=== PATIENT | female | born 1990 | race Caucasian/White ===

== ENCOUNTER → 2019-04-17 | Outpatient (REF) | payer OTHER ==
[2019-04-17 18:09] LABS: HEMATOCRIT 40.1 % (36.0-47.0); HEMOGLOBIN 13.8 g/dl (12.0-15.5); MEAN CORPUSCULAR HEMOGLOBIN 29.4 pg (27.0-33.0); MEAN CORPUSCULAR HGB CONC 34.4 g/dl (32.0-36.5); MEAN CORPUSCULAR VOLUME 85.3 fl (80.0-96.0); PLATELET COUNT, AUTOMATED 219 10^3/uL (150-450); WHITE BLOOD COUNT 5.9 10^3/uL (4.0-10.0)
[2019-04-18 12:45] LABS: HCG, SERUM QUANTITATIVE 26477 MIU/ML; HIV 1&2 SCREEN CENTAUR NEGATIVE (NEGATIVE); RUBELLA IgG QUALITATIVE IMMUNE (IMMUNE)
[2019-04-19 11:10] LABS: HEPATITIS C VIRUS ABY INDEX 0.7 INDEX (<0.8)
== END ==
LOC: M LAB REF 16:59
PROVIDERS: ATTEND Nurse Practitioner Women's Health
DX: Z34.01 Encounter for supervision of normal first pregnancy, first trimester (principal); Z3A.00 Weeks of gestation of pregnancy not specified

== ENCOUNTER 2019-05-04 14:47 | Emergency (ER) | payer OTHER ==
[~2019-05-04] VITALS: Ht 172.7 cm; Wt 92.7 kg
[2019-05-04] MEDS ORDERED: PROMETHAZINE INJ 25 MG/ML VIAL (J2550) IV ONE (15:30)
[2019-05-04] MEDS ORDERED: NS 1,000 ML IV ONE (15:30)
[2019-05-04 16:09] LABS: BASO % 0.4 % (0.0-1.0); EOS % 0.6 % (0.0-3.0); HEMATOCRIT 38.5 % (36.0-47.0); HEMOGLOBIN 13.6 g/dl (12.0-15.5); LYMPH # 1.7 10^3/uL (1.5-6.5); LYMPH % 25.7 % (24.0-44.0); MEAN CORPUSCULAR HEMOGLOBIN 29.6 pg (27.0-33.0); MEAN CORPUSCULAR HGB CONC 35.3 g/dl (32.0-36.5); MEAN CORPUSCULAR VOLUME 83.9 fl (80.0-96.0); MONO # 0.5 10^3/uL (0.0-0.8); MONO % 7.2 % (0.0-5.0); NEUTROPHILS # 4.5 10^3/uL (1.8-7.7); NEUTROPHILS % 65.8 % (36.0-66.0); PLATELET COUNT, AUTOMATED 197 10^3/uL (150-450); RED BLOOD COUNT 4.59 10^6/uL (4.00-5.40); WHITE BLOOD COUNT 6.8 10^3/uL (4.0-10.0)
[2019-05-04 16:31] LABS: HCG, SERUM QUALITATIVE POSITIVE (NEGATIVE)
[2019-05-04 16:33] LABS: ALBUMIN 3.6 GM/DL (3.2-5.2); ALT/SGPT 37 U/L (12-78); BILIRUBIN,DIRECT 0.2 MG/DL (0.0-0.2); BILIRUBIN,TOTAL 0.6 MG/DL (0.2-1.0); BLOOD UREA NITROGEN 6 MG/DL (7-18); CARBON DIOXIDE LEVEL 26 MEQ/L (21-32); CHLORIDE LEVEL 105 MEQ/L (98-107); CREATININE FOR GFR 0.72 MG/DL (0.55-1.30); GLOMERULAR FILTRATION RATE > 60.0 (>60); GLUCOSE, FASTING 74 MG/DL (70-100); LIPASE 230 U/L (73-393); POTASSIUM SERUM 3.6 MEQ/L (3.5-5.1); SODIUM LEVEL 138 MEQ/L (136-145); TOTAL PROTEIN 7.7 GM/DL (6.4-8.2)
[2019-05-04 18:46] VITALS: BP 106/56
[2019-05-04] MEDS ORDERED: PROM12.56 PO (18:55)
== END 2019-05-04 19:15 | disposition home or self-care (01) ==
LOC: M ED 14:47
DX: O21.9 Vomiting of pregnancy, unspecified (principal); Z3A.08 8 weeks gestation of pregnancy

== ENCOUNTER 2019-06-02 12:52 | Emergency (ER) | payer OTHER ==
[~2019-06-02] VITALS: Ht 172.7 cm; Wt 84.1 kg
[~2019-06-02 12:52] MED LIST: PROM12.56 PO
[2019-06-02 13:40] LABS: BASO % 0.4 % (0.0-1.0); EOS # 0.1 10^3/uL (0.0-0.50); EOS % 0.9 % (0.0-3.0); HEMATOCRIT 40.5 % (36.0-47.0); LYMPH # 1.8 10^3/uL (1.5-6.5); LYMPH % 32.6 % (24.0-44.0); MEAN CORPUSCULAR HEMOGLOBIN 30.2 pg (27.0-33.0); MEAN CORPUSCULAR HGB CONC 34.6 g/dl (32.0-36.5); MEAN CORPUSCULAR VOLUME 87.5 fl (80.0-96.0); MONO # 0.3 10^3/uL (0.0-0.8); MONO % 5.8 % (0.0-5.0); NEUTROPHILS # 3.2 10^3/uL (1.8-7.7); NEUTROPHILS % 60.1 % (36.0-66.0); PLATELET COUNT, AUTOMATED 189 10^3/uL (150-450); RED BLOOD COUNT 4.63 10^6/uL (4.00-5.40); WHITE BLOOD COUNT 5.4 10^3/uL (4.0-10.0)
[2019-06-02 14:23] LABS: BLOOD UREA NITROGEN 5 MG/DL (7-18); CARBON DIOXIDE LEVEL 26 MEQ/L (21-32); CHLORIDE LEVEL 107 MEQ/L (98-107); CREATININE FOR GFR 0.64 MG/DL (0.55-1.30); GLOMERULAR FILTRATION RATE > 60.0 (>60); GLUCOSE, FASTING 89 MG/DL (70-100); HCG, SERUM QUANTITATIVE 38128 MIU/ML; POTASSIUM SERUM 3.7 MEQ/L (3.5-5.1); SODIUM LEVEL 140 MEQ/L (136-145)
[2019-06-02 16:37] VITALS: BP 121/65
--- NOTE | 2019-06-02 20:44 | REP ---
REASON: Vaginal bleeding. Multiple ultrasonographic images of the gravid uterus show a single living intrauterine gestation in variable positions. The fetus was too small for an anatomical screen. The estimated gestational age is 13 weeks 5 days. HC 8.6 cm 13 weeks 6 days AC 6.1 cm 12 weeks 6 days FL 1.0 cm 13 weeks 1 day The estimated weight is 69 grams which is at the 43rd percentile for a 12 week 6 days gestational age. Doppler interrogation of the heart shows a heart rate of 150 beats per minute. No subchorionic hemorrhage was noted. The developing placenta was seen anteriorly and not low lying. Evaluation of the maternal adnexal spaces showed no abnormalities. The cervix measures 4.1 cm in length and was closed. The anatomical screen was not possible due to the young age. IMPRESSION: Single living intrauterine gestation as described above with an estimated gestational age of 13 weeks 2 days via composite criteria with an estimated date of delivery of 12/06/2019 by today exam. The fetus was too small for an anatomical screen. Followup is recommended between 20 and 22 weeks gestation for that examination to be performed. Electronically Signed by Tommie Churchill DO 06/03/2019 10:03 A
== END 2019-06-02 16:38 | disposition home or self-care (01) ==
LOC: M ED 12:52
DX: O20.8 Other hemorrhage in early pregnancy (principal); O99.281 Endocrine, nutritional and metabolic diseases complicating pregnancy, first trimester; Z3A.13 13 weeks gestation of pregnancy; Z79.899 Other long term (current) drug therapy

== ENCOUNTER 2019-06-14 14:33 | Emergency (ER) | payer OTHER ==
[~2019-06-14] VITALS: Ht 172.7 cm; Wt 82.2 kg
[2019-06-14] MEDS ORDERED: ONDA8TAB7 (14:45)
[2019-06-14 15:32] LABS: BASO % 0.2 % (0.0-1.0); EOS % 0.7 % (0.0-3.0); HEMATOCRIT 35.1 % (36.0-47.0); HEMOGLOBIN 12.2 g/dl (12.0-15.5); LYMPH # 1.4 10^3/uL (1.5-6.5); LYMPH % 24.7 % (24.0-44.0); MEAN CORPUSCULAR HEMOGLOBIN 29.5 pg (27.0-33.0); MEAN CORPUSCULAR HGB CONC 34.8 g/dl (32.0-36.5); MONO # 0.4 10^3/uL (0.0-0.8); MONO % 6.9 % (0.0-5.0); NEUTROPHILS # 3.9 10^3/uL (1.8-7.7); PLATELET COUNT, AUTOMATED 196 10^3/uL (150-450); RED BLOOD COUNT 4.13 10^6/uL (4.00-5.40); WHITE BLOOD COUNT 5.8 10^3/uL (4.0-10.0)
[2019-06-14 16:21] LABS: BLOOD UREA NITROGEN 6 MG/DL (7-18); CALCIUM LEVEL 8.8 MG/DL (8.5-10.1); CARBON DIOXIDE LEVEL 23 MEQ/L (21-32); CHLORIDE LEVEL 109 MEQ/L (98-107); CREATININE FOR GFR 0.49 MG/DL (0.55-1.30); GLOMERULAR FILTRATION RATE > 60.0 (>60); GLUCOSE, FASTING 135 MG/DL (70-100); HCG, SERUM QUANTITATIVE 32517 MIU/ML; POTASSIUM SERUM 3.9 MEQ/L (3.5-5.1); SODIUM LEVEL 137 MEQ/L (136-145)
--- NOTE | 2019-06-14 16:31 | REP ---
Obstetric ultrasound for pelvic cramping: There is a single intrauterine gestation. position is variable. There is movement and cardiac activity. The heart rate is 135 beats per minute. The placenta is anterior without previa or abruptio. The placenta demonstrates grade zero maturity. The amniotic fluid volume subjectively is normal. The cervix is 4.2 cm in length. Gestational age by today's ultrasound is 15-week 0 days/OSMIN 12/06/2019. Gestational age by the first ultrasound is 15 weeks 0 days/OSMIN 12/06/2019. Gestational age by LMP is 14 weeks 4 days/OSMIN 12/09/2019. weight is 110 grams/0 pounds, 3 ounces. This is the 54th percentile for 14 weeks 4 days. During the examination. Normal appearing stomach, cord insertion and bladder are observed. Electronically Signed by Guerrero Page MD 06/14/2019 04:22 P
[2019-06-14 17:07] VITALS: BP 103/61
== END 2019-06-14 17:10 | disposition home or self-care (01) ==
LOC: M ED 14:33
DX: O26.852 Spotting complicating pregnancy, second trimester (principal); Z3A.14 14 weeks gestation of pregnancy; Z79.899 Other long term (current) drug therapy

== ENCOUNTER → 2019-07-04 | Outpatient (CLI) | payer OTHER ==
[~2019-07-04] MED LIST changes: +ONDA8TAB7
--- NOTE | 2019-07-04 15:23 | REP ---
OB ULTRASOUND: Real-time sonographic evaluation of gravid uterus performed utilizing transabdominal and endovaginal technique. There is a single living intrauterine gestation, estimated gestational age 17 weeks 3 days, EDC 12/09/2019. Today's measurements indicate appropriate growth. BPD 35 mm = 16 weeks 6 days, 30th percentile HC 144 mm = 17 weeks 4 days, 57th percentile AC 129 mm = 18 weeks 3 days, 73rd percentile Femur length 27 mm = 18 weeks 1 day, 68th percentile HC/AC ratio 1.11 within normal range. Estimated weight 228 grams, 79th percentile. Cervix closed and measures 4.3 cm in length. heart rate 141 beats per minute. SEEN/GROSSLY UNREMARKABLE Lateral ventricles Yes Posterior fossa Yes Upper lip No Four-chamber heart Yes LVOT Yes RVOT Yes Stomach Yes Cord insertion Yes Three vessel cord Yes Kidneys Yes Bladder Yes Spine Yes position: Transverse with head toward the maternal right side. Placenta is anterior and grade 0. There is no placenta previa or abruption. On transabdominal images, there is a somewhat mobile oval echogenic structure posteriorly measuring 2.8 x 1.2 x 2.0 cm, likely representing a blood clot. There is an area of unfused amnion. Amniotic fluid is within normal limits. Electronically Signed by Guerrero Sue MD 07/04/2019 05:02 P
== END ==
LOC: M RAD 11:25
PROVIDERS: ATTEND Advanced Practice Midwife
DX: O32.2XX0 Maternal care for transverse and oblique lie, not applicable or unspecified (principal); Z36.89 Encounter for other specified antenatal screening; Z3A.17 17 weeks gestation of pregnancy

== ENCOUNTER → 2019-07-24 | Outpatient (CLI) | payer OTHER ==
[2019-07-24 18:27] LABS: FREE T4 1.02 NG/DL (0.76-1.46); THYROID STIMULATING HORMONE 1.39 uIU/ML (0.358-3.740)
[2019-07-24 18:36] LABS: HEMATOCRIT 34.7 % (36.0-47.0); HEMOGLOBIN 11.4 g/dl (12.0-15.5); MEAN CORPUSCULAR HEMOGLOBIN 30.3 pg (27.0-33.0); MEAN CORPUSCULAR HGB CONC 32.9 g/dl (32.0-36.5); MEAN CORPUSCULAR VOLUME 92.3 fl (80.0-96.0); PLATELET COUNT, AUTOMATED 212 10^3/uL (150-450); RED BLOOD COUNT 3.76 10^6/uL (4.00-5.40); WHITE BLOOD COUNT 6.2 10^3/uL (4.0-10.0)
== END ==
LOC: M SMT 13:26
PROVIDERS: ATTEND Advanced Practice Midwife
DX: O21.0 Mild hyperemesis gravidarum (principal); Z3A.00 Weeks of gestation of pregnancy not specified

== ENCOUNTER → 2019-08-07 | Outpatient (CLI) | payer OTHER ==
--- NOTE | 2019-08-08 00:50 | REP ---
Clinical: Anatomical evaluation. Comparison: 07/04/2019 . Findings: Examination demonstrates a single live intrauterine in transverse (head to maternal right) presentation. motion is identified by technologist. Placenta is noted anterior and grade I without evidence for placenta previa or abruption. Amniotic fluid volume is normal. Cervix measures 3.2 cm in length and appears closed. No evidence for nuchal cord. Gestational age by LMP 22 weeks 2 days with OSMIN 12/09/2019 . Gestational age by current measurements 22 weeks 3 day with OSMIN 12/08/2019 . FHR equals 136 beats per minute. Estimated weight 497 grams ( 47 percentile). Anatomical assessment demonstrates normal structures including cranium, choroid plexus, cavum, cerebellum/posterior fossa, facial features, lungs, diaphragm, stomach, cord insertion/three-vessel cord, kidneys/bladder, and extremities. Impression: Single live intrauterine in transverse lie demonstrating appropriate interval growth. Venous lakes noted in the placenta. In conjunction with prior examination anatomical assessment is essentially complete and normal. Electronically Signed by Rolan Keane MD 08/08/2019 12:42 A
== END ==
LOC: M RAD 13:37
PROVIDERS: ATTEND Advanced Practice Midwife
DX: O26.852 Spotting complicating pregnancy, second trimester (principal); O43.892 Other placental disorders, second trimester; Z3A.22 22 weeks gestation of pregnancy

== ENCOUNTER → 2019-10-03 | Outpatient (CLI) | payer OTHER ==
[2019-10-03 14:29] LABS: BASO % 0.3 % (0.0-1.0); EOS % 0.5 % (0.0-3.0); HEMATOCRIT 34.7 % (36.0-47.0); HEMOGLOBIN 11.3 g/dl (12.0-15.5); LYMPH # 1.8 10^3/uL (1.5-5.0); LYMPH % 23.2 % (24.0-44.0); MEAN CORPUSCULAR HEMOGLOBIN 30.1 pg (27.0-33.0); MEAN CORPUSCULAR HGB CONC 32.6 g/dl (32.0-36.5); MEAN CORPUSCULAR VOLUME 92.5 fl (80.0-96.0); MONO # 0.5 10^3/uL (0.0-0.8); NEUTROPHILS # 5.3 10^3/uL (1.5-8.5); NEUTROPHILS % 69.2 % (36.0-66.0); PLATELET COUNT, AUTOMATED 136 10^3/uL (150-450); RED BLOOD COUNT 3.75 10^6/uL (4.00-5.40); WHITE BLOOD COUNT 7.7 10^3/uL (4.0-10.0)
== END ==
LOC: M PLALAB 10:42
PROVIDERS: ATTEND Advanced Practice Midwife
DX: Z34.82 Encounter for supervision of other normal pregnancy, second trimester (principal)

== ENCOUNTER → 2019-11-15 | Outpatient (REF) | payer OTHER ==
[~2019-11-15] MED LIST changes: +ONDA8TAB10; -ONDA8TAB7
== END ==
LOC: M SFHCWAGY 17:16
PROVIDERS: ATTEND Advanced Practice Midwife
DX: Z36.85 Encounter for antenatal screening for Streptococcus B (principal)

== ENCOUNTER → 2019-11-15 | Outpatient (CLI) | payer OTHER ==
[2019-11-15 17:26] LABS: HEMATOCRIT 38.6 % (36.0-47.0); HEMOGLOBIN 12.1 g/dl (12.0-15.5); MEAN CORPUSCULAR HEMOGLOBIN 29.4 pg (27.0-33.0); MEAN CORPUSCULAR HGB CONC 31.3 g/dl (32.0-36.5); MEAN CORPUSCULAR VOLUME 93.7 fl (80.0-96.0); PLATELET COUNT, AUTOMATED 148 10^3/uL (150-450); RED BLOOD COUNT 4.12 10^6/uL (4.00-5.40); WHITE BLOOD COUNT 8.7 10^3/uL (4.0-10.0)
== END ==
LOC: M PLALAB 14:31
PROVIDERS: ATTEND Advanced Practice Midwife
DX: Z34.93 Encounter for supervision of normal pregnancy, unspecified, third trimester (principal)

== ENCOUNTER 2019-12-09 09:45 | Inpatient (IN) | payer OTHER ==
[~2019-12-09] VITALS: Ht 172.7 cm; Wt 98.3 kg
[2019-12-09] VITALS (41 sets, daily range): BP systolic 85–159; BP diastolic 51–74
[2019-12-09] MEDS ORDERED: PRENTAB9 PO (10:00)
[2019-12-09] MEDS ORDERED: LACTATED RINGER'S 1000 ML IV STA (10:16)
[2019-12-09] MEDS ORDERED: OXYTOCIN DRIP 30 UNITS in IV 1 EA IV SCH (10:45)
--- NOTE | 2019-12-09 11:00 | HPEPDOC ---
Obstetrical History & Physical General Date of Admission Dec 09, 2019 at 09:45 Primary Care Physician: MELVINA HUYNH CNM History of Present Illness Patient is 29-year-old female who is a with an OSMIN of 12/13/19 based on her LMP and consistent with her first trimester ultrasound. She initiated care at [facility] and transferred care in her early second trimester with [facility]. Her has been complicated by nausea and vomiting, which patient lost about 20 lbs in her first trimester due to this. Her has also been complicated by HSV I -genital herpes outbreak, which she has been taking Valtrex for prophylaxis. She also has a history of anemia with thrombocytopenia with her last and again this . 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 She reports active movement. She denies leaking of fluid, contractions, or vaginal bleeding. Chief Complaint: Induction of labor Information Provided By: Patient Age: 29 : 2 Term: 1 Pre-term: 0 Abortions: 0 Livin Care Care: Good Care Dating Final EDC: Dec 13, 2019 Final EDC by: LMP LMP: March 08, 2019 EGA at Admission: 39.3 Antepartum Course Diagnos(e)s thrombocytopenia Height (inches): 68 Pre- weight (lbs.): 204 Admission Weight (lbs.): 216 Change in Weight (lbs.): 12 Past Medical History Past Obstetrical History : Past Obstetrical History: Primgravida Gestation: 37 Type of Delivery: Spontaneous Vaginal Del. (July 2011) Sex of Infant: Female (weight 6 lbs) Complications: Yes (anemia with thrombocytopenia- platelets to low to get ep idural) [employer] History: Herpes simplex virus(HSV) Past Medical History Medical History No current problems beyond anemia and thrombocytopenia during Surgical History: Other (knee surgery) Family History Significant Family History: Cancer, Diabetes, Heart disease Social History Marital Status: Family situation: Spouse/partner home * Smoker: non-smoker Alcohol: Denies Drugs: denies Abuse Violence Screening Have you been hit/kicked/slapp: No Have you been sexually assault: No Imunizations Tdap status: current Allergies Coded Allergies: No Known Allergies (Verified Allergy, Unknown, 05/04/19) Medications Scheduled No.137/Iron/Folic Acd ( Vitamin Tablet) 1 Each Tablet, 1 TAB PO DAILY Valacyclovir HCl (Valtrex) 1,000 Mg Tablet, 1 GRAM PO TID Miscellaneous Medications Ondansetron HCl (Ondansetron HCl) 8 Mg Tablet Physical Examination Physical Examination GENERAL: Alert and oriented times three. BREAST: . ABDOMEN: Gravid and non-tender to touch. FETUS: Is vertex (VTX) by sterile vaginal examination (SVE), fetus is vertex (VTX) by Pierce. HEART RATE: Regular rate and rhythm. LUNGS: Clear to auscultation (CTA). PERINEUM: no active lesions noted EXTREMITIES: No edema. No clonus. Deep tendon reflexes (DTRs) + 2. Vital Signs/I&O Vital Signs Label Value Date Time Patient Temperature 97.5 degrees F 12/09/19 1009 Pulse 106 12/09/19 1009 Respiratory Rate 18 bpm 12/09/19 1009 Blood Pressure Assessment 108/58 (75) 12/09/19 1009 Source Automatic Cuff (NIBP) Laboratory Data 24H LABS Laboratory Tests 2 12/09/19 10:17: Serology Scanned Report Hepatitis B Testing CBC/BMP Item Value Date Time White Blood Count 7.7 10^3/uL 12/09/19 1056 Red Blood Count 3.74 10^6/uL L 12/09/19 1056 Hemoglobin 11.1 g/dl L 12/09/19 1056 Hematocrit 33.5 % L 12/09/19 1056 Mean Corpuscular Volume 89.6 fl 12/09/19 1056 Mean Corpuscular Hemoglobin 29.7 pg 12/09/19 1056 Mean Corpuscular Hemoglobin Concent 33.1 g/dl 12/09/19 1056 Red Cell Distribution Width 13.2 % 12/09/19 1056 Platelet Count 142 10^3/uL L 12/09/19 1056 Nucleated Red Blood Cells % (auto) 0.0 % 12/09/19 1056 Urine Culture: No Growth Pertinent Laboratoy Data Blood Type: O+ RBC Antibody Screen: Negative HIV: Negative Hepatitis B: Negative Hepatitis C: Negative Rapid Plasma Reagin: Nonreactive Rubella: Immune Varicella: Nonreactive Chlamydia/Gonorrhea: Negative Group B Streptococcus: Negative Glucose Tolerance Test: 122 Anatomy Ultrasound Ultrasound Date: Aug 07, 2019 Placenta Location: Anterior Normal Anatomy: Yes Placenta Previa: No Vaginal Examination Dilation: 4 cm Effacement: 80% Station: -1 Cervical Consistency: Soft Cervical Position: Anterior Presentation: Cephalic presentation Position: Vertex (occiput) Assessment Heart Rate (FHR): 140 Variability: Moderate Accelerations: Positive Decelerations: None Tocometer Contractions: Yes Frequency: irregular Assessment/Plan Assessment IUP at 39.3 weeks gestation GBS negative Category I FHR tracing elective induction of labor Plan Admit to L&D. OOB ad ciara. Diet: clears. Group B Streptococcus (GBS) negative. Labs and intravenous (IV) per unit protocol. Counseled on Pitocin for induction of labor (IOL). Lactated Ringers (LR): Bolus 500 mL prior, then at 125 mL/hr. Anesthesia consult per patient's request. Anticipate normal spontaneous delivery (). C-S as appropriate. MELVINA HUYNH CNM Dec 09, 2019 11:00
[2019-12-09 11:12] LABS: HEMATOCRIT 33.5 % (36.0-47.0); HEMOGLOBIN 11.1 g/dl (12.0-15.5); MEAN CORPUSCULAR HEMOGLOBIN 29.7 pg (27.0-33.0); MEAN CORPUSCULAR HGB CONC 33.1 g/dl (32.0-36.5); MEAN CORPUSCULAR VOLUME 89.6 fl (80.0-96.0); PLATELET COUNT, AUTOMATED 142 10^3/uL (150-450); RED BLOOD COUNT 3.74 10^6/uL (4.00-5.40); WHITE BLOOD COUNT 7.7 10^3/uL (4.0-10.0)
[2019-12-09] MEDS ORDERED: VALT1TAB PO (11:43)
[2019-12-09] MEDS: LR 1,000 ML IV SCH ×2 (11:58→16:43)
[2019-12-09] MEDS ORDERED: FENTANYL 2MCG/ML ROPIVACAINE 0.2% IN 0.9% NACL 100ML IVBAG As Ordered ONE (15:10)
[2019-12-09] MEDS ORDERED: REFRIGERATOR IV KEYS XX PRN (16:00)
[2019-12-09] MEDS ORDERED: ONDANSETRON 4MG/2ML VIAL (J2405) IV PRN (16:00)
[2019-12-09] MEDS ORDERED: diphenhydrAMINE INJ 50MG/ML VIAL (J1200) IV PRN (16:00)
[2019-12-09] MEDS ORDERED: EPIDURAL COMMENT XX SCH (16:00)
[2019-12-09] MEDS ORDERED: FENTANYL/ROPIVACAINE/NACL BAG 100 ML EPIDURAL SCH (16:00)
[2019-12-09] MEDS ORDERED: EPIDURAL/PCA KEYS XX PRN (16:00)
[2019-12-09] MEDS ORDERED: NALOXONE INJ 0.4 MG/1 ML VIAL (J2310) IV PRN (16:00)
[2019-12-09] MEDS ORDERED: LACTATED RINGER'S 1000 ML IV PRN (16:00)
[2019-12-09] MEDS: ePHEDrine SULFATE 25 MG/5 ML(5MG/ML) SYRINGE IV PRN ×3 (16:10→16:21)
--- NOTE | 2019-12-09 17:53 | IPNPDOC ---
Obstetrical Progress Note Date of Service Dec 09, 2019 Subjective Patient reports she is feeling comfortable with her epidural. Objective Vital Signs Date Time Temp Pulse Resp B/P (MAP) Pulse Ox O2 Delivery O2 Flow Rate FiO2 12/09/19 16:39 97.1 93 18 109/57 (74) Assessment Heart Rate (FHR): 120 Variability: Moderate Accelerations: Positive Decelerations: None Heart Rate Tracing: Category I Tocometer Contractions: Yes Frequency: regular Sterile Vaginal Examination Dilation: 4 cm Effacement (%): 80% Station: -1 Cervical Consistency: Soft Cervical Position: Anterior Postion/Presentation: Cephalic presentation Assessment and Plan Status: Reassuring Group B Streptococcus: Negative Anticipate: Vaginal Delivery Additional Comments Pitocin is at 4 mu/min. AROM to a moderate amount of clear fluid. MELVINA HUYNH CNM Dec 09, 2019 17:52
[2019-12-09 22:10] LABS: CORD GAS ABE A -4.7; CORD GAS HCO3 A 23.1 MEQ/L; CORD GAS O2 SAT A 32.7 %; CORD GAS PCO2 A 53.7 mmHg; CORD GAS PH A 7.252 UNITS; CORD GAS SBC A 19.1 MEQ/L; CORD GAS TCO2 A 24.8 MEQ/L
[2019-12-09 22:11] LABS: CORD GAS ABE V -5.5; CORD GAS HCO3 V 19.2 MEQ/L; CORD GAS O2 SAT V 85.3 %; CORD GAS PCO2 V 35.3 mmHg; CORD GAS PH V 7.354 UNITS; CORD GAS PO2 V 39.3 mmHg; CORD GAS SBC V 19.8 MEQ/L; CORD GAS TCO2 V 20.3 MEQ/L
[2019-12-10] MEDS ORDERED: OXYTOCIN DRIP 30 UNITS in IV 1 EA IV SCH (00:13)
[2019-12-10] MEDS ORDERED: IBUPROFEN 600 MG TAB PO PRN (00:15)
[2019-12-10] MEDS ORDERED: DOCUSATE SODIUM 100 MG CAP PO PRN (00:15)
[2019-12-10] MEDS ORDERED: MEASLES,MUMPS,RUBELLA VACCINE INJ (MMR-II) (90707) SC SCH (00:15)
[2019-12-10] MEDS ORDERED: RHOGAM 300 MCG (1500 IU) INJ (J2790) IM SCH (00:15)
[2019-12-10] MEDS ORDERED: ANUSOL HC CREAM 30GM TOP PRN (00:15)
[2019-12-10] MEDS ORDERED: ACETAMINOPHEN TAB 650MG DOSE (2X325MG) PO PRN (00:15)
[2019-12-10] MEDS ORDERED: DIBUCAINE 1% OINTMENT 30GM TOP PRN (00:15)
[2019-12-10] MEDS ORDERED: METHYLERGONOVINE MALEATE 0.2 MG TAB PO PRN (00:15)
--- NOTE | 2019-12-10 00:33 | DNPDOC ---
[facility] Delivery Note Delivery Note DATE OF DELIVERY: 12/10/2019 at 2150 PREDELIVERY DIAGNOSIS: 39-2/7 weeks' gestation and labor. POST DELIVERY DIAGNOSIS: Delivered. PROCEDURE: Spontaneous vaginal delivery. TAPE CUTTING MACHINE OPERATOR: Melvina Ayoub CNM, WHNP ANESTHESIA: epidural. ESTIMATED BLOOD LOSS: 400 mL. FINDINGS: 9 pounds 6 ounces; 4260 grams, male infant, Score 8/9, bandolero cord, shoulder dystocia 50 seconds, prolonged deceleration, multiple variable decelerations with pushing. . DELIVERY SUMMARY: Patient is a 29-year-old female who is now a at 39.2 weeks gestation who presented for an elective induction of labor. She received IV Pitocin for her induction and an epidural for pain management. She progressed to fully dilated at 2116 and pushed to a living male in the WALDO position with restitution to ROT. A shoulder dystocia was noted and McRobert's was performed without success until an extra staff member was able to make it into room. The patient was repositioned and another attempt was done with McRobert's and suprapubic pressure, which helped resolve the shoulder dystocia which was about 50 seconds long. The corpus immediately delivered and placed on the maternal abdomen active and crying. The baby was actively moving its right arm. The cord was clamped x2 and cut by the FOB after pulsation ceased. The placenta delivered spontaneously and intact at 2157. Uterine hemostasis was achieved via rapid infusion of IV Pitocin and fundal massage. The vagina, cervix and perineum was inspected and found to have a small first degree perineal laceration that was repaired with a 3.[address]-1. Both mom and baby are in stable condition. She plans to breast feed. All counts of instruments and sponges are correct. Item Value Date Time Cord Arterial Blood pH 7.252 UNITS 12/09/192021 Cord Arterial Blood PCO2 53.7 mmHg 12/09/192021 Cord Arterial Blood PO2 18.0 mmHg 12/09/192021 Cord Arterial Blood HCO3 23.1 MEQ/L 12/09/192021 Cord Arterial Blood Total CO2 24.8 MEQ/L 12/09/192021 Cord Arterial Blood Base Excess -4.7 12/09/192021 Cord Arterial Base Excess (Standard 19.1 MEQ/L 12/09/192021 Cord Arterial Bld Oxygen Saturation 32.7 % 12/09/192021 Item Value Date Time Cord Venous Blood pH 7.354 UNITS 12/09/192021 Cord Venous Blood PCO2 35.3 mmHg 12/09/192021 Cord Venous Blood PO2 39.3 mmHg 12/09/192021 Cord Venous Blood HCO3 19.2 MEQ/L 12/09/192021 Cord Venous Blood Total CO2 20.3 MEQ/L 12/09/192021 Cord Venous Base Excess (Actual) -5.5 12/09/192021 Cord Venous Base Excess (Standard) 19.8 MEQ/L 12/09/192021 Cord Venous Blood Oxygen Saturation 85.3 % 12/09/192021 MELVINA AYOUB CNM Dec 10, 2019 00:33
[2019-12-10 01:00] VITALS: BP 134/66
[2019-12-10] MEDS: IBUPROFEN 800 MG TAB PO PRN ×2 (01:32→19:55)
[2019-12-10] MEDS: ACETAMINOPHEN 500 MG TAB PO PRN ×2 (03:51→13:23)
[2019-12-10 06:00] VITALS: BP 118/58
[2019-12-10] MEDS: PRENATAL VITAMINS CHEWABLE TABLET PO SCH (07:29)
--- NOTE | 2019-12-10 08:05 | IPNPDOC ---
Progress Note Date of Service: Dec 10, 2019 Day#: 1 Progress Note SUBJECT: Patient is a who had a social induction. She has been ambulating, voiding spontaneously without issue and tolerating regular diet. Breast feeding without issue. OBJECTIVE: VITAL SIGNS: Within normal limits, afebrile. Alert and oriented times three. Breath sounds clear to auscultation. Heart rate: Regular rate and rhythm, no murmurs, rubs or gallops. Abdomen: Fundus firm at U-2. Soft, NTTP. Minimal lochia. ASSESSMENT: Day 1 PLAN: 1. Continue supportive nursing care and breast feeding support. 2. Anticipate discharge to home tomorrow. VS, I&O, 24H, Fishbone Vital Signs/I&O Vital Signs Date Time Temp Pulse Resp B/P (MAP) Pulse Ox O2 Delivery O2 Flow Rate FiO2 12/10/19 06:00 98.7 96 16 118/58 (78) 12/10/19 01:00 98 Room Air I&O- Last 24 Hours up to 6 AM 12/10/19 06:00 Intake Total 2800 ml Output Total 1325 ml Balance 1475 ml Laboratory Data 24H LABS Laboratory Tests 2 12/09/19 10:17: Serology Scanned Report Hepatitis B Testing 12/09/19 10:56: Nucleated Red Blood Cells % (auto) 0.0, Syphilis Serology NONREACTIVE 12/09/19 20:22: Cord Arterial Blood pH 7.252, Cord Arterial Blood PCO2 53.7, Cord Arterial Blood PO2 18.0, Cord Arterial Blood HCO3 23.1, Cord Arterial Blood Total CO2 24.8, Cord Arterial Blood Base Excess -4.7, Cord Arterial Base Excess (Standard 19.1, Cord Arterial Bld Oxygen Saturation 32.7, Cord Venous Blood pH 7.354, Cord Venous Blood PCO2 35.3, Cord Venous Blood PO2 39.3, Cord Venous Blood HCO3 19.2, Cord Venous Blood Total CO2 20.3, Cord Venous Base Excess (Actual) -5.5, Cord Venous Base Excess (Standard) 19.8, Cord Venous Blood Oxygen Saturation 85.3 CBC/BMP Laboratory Tests 12/09/19 10:56 MELVINA HUYNH CNM Dec 10, 2019 08:05
[2019-12-10 18:05] VITALS: BP 125/58
[2019-12-11] MEDS: IBUPROFEN 800 MG TAB PO PRN ×2 (05:55→13:42)
[2019-12-11 06:00] VITALS: BP 104/57
[2019-12-11] MEDS: PRENATAL VITAMINS CHEWABLE TABLET PO SCH (08:10)
[2019-12-11] MEDS: ACETAMINOPHEN 500 MG TAB PO PRN (08:10)
[2019-12-11] MEDS ORDERED: INFLUENZA QUADRIVALENT PF VACCINE 0.5ML SYRINGE (90686) IM ONE (09:00)
== END 2019-12-11 13:45 | disposition home or self-care (01) | DRG 806 ==
LOC: M LDI 09:45 → M OBS 23:30
PROVIDERS: ADMIT Advanced Practice Midwife; ATTEND Advanced Practice Midwife
PROC: 10907ZC Drainage of Amniotic Fluid, Therapeutic from Products of Conception, Via Natural or Artificial Opening (ICD-10-PCS; 2019-12-09)
PROC: 3E033VJ Introduction of Other Hormone into Peripheral Vein, Percutaneous Approach (ICD-10-PCS; 2019-12-09)
PROC: 10E0XZZ Delivery of Products of Conception, External Approach (ICD-10-PCS; principal; 2019-12-10)
PROC: 0HQ9XZZ Repair Perineum Skin, External Approach (ICD-10-PCS; 2019-12-10)
DX: O99.03 Anemia complicating the puerperium (principal); Z37.0 Single live birth; O99.12 Other diseases of the blood and blood-forming organs and certain disorders involving the immune mechanism complicating childbirth; Z3A.39 39 weeks gestation of pregnancy; D69.6 Thrombocytopenia, unspecified; O69.82X0 Labor and delivery complicated by other cord entanglement, without compression, not applicable or unspecified; O66.0 Obstructed labor due to shoulder dystocia; O76 Abnormality in fetal heart rate and rhythm complicating labor and delivery; O70.0 First degree perineal laceration during delivery

== ENCOUNTER → 2020-06-03 | Outpatient (REF) | payer OTHER ==
[~2020-06-03] MED LIST changes: +PRENTAB9 PO; +VALT1TAB PO
== END ==
LOC: M SFHCWAGY 11:39
PROVIDERS: ATTEND Advanced Practice Midwife
DX: Z12.4 Encounter for screening for malignant neoplasm of cervix (principal)

== ENCOUNTER → 2020-08-11 | Outpatient (REF) | payer OTHER ==
[2020-08-11 16:19] LABS: HEMOGLOBIN A1c 5.3 %
[2020-08-11 16:29] LABS: ALBUMIN 3.7 GM/DL (3.2-5.2); ALT/SGPT 21 U/L (12-78); BILIRUBIN,TOTAL 0.7 MG/DL (0.2-1.0); BLOOD UREA NITROGEN 12 MG/DL (7-18); CALCIUM LEVEL 9.6 MG/DL (8.5-10.1); CARBON DIOXIDE LEVEL 27 MEQ/L (21-32); CHLORIDE LEVEL 106 MEQ/L (98-107); CREATININE FOR GFR 0.97 MG/DL (0.55-1.30); GLOMERULAR FILTRATION RATE > 60.0 (>60); GLUCOSE, FASTING 85 MG/DL (70-100); SODIUM LEVEL 138 MEQ/L (136-145); TOTAL PROTEIN 7.7 GM/DL (6.4-8.2)
== END ==
LOC: M SFHCPLAZ 13:20
DX: Z00.00 Encounter for general adult medical examination without abnormal findings (principal); E66.9 Obesity, unspecified; G43.009 Migraine without aura, not intractable, without status migrainosus

== ENCOUNTER 2020-09-30 12:01 | Emergency (ER) | payer OTHER ==
[~2020-09-30] VITALS: Ht 172.7 cm; Wt 85.8 kg
[2020-09-30] MEDS ORDERED: TOPI100T9 (12:38)
[2020-09-30] MEDS ORDERED: IBUP1TAB7 PO (12:38)
[2020-09-30] MEDS ORDERED: PHEN15CA (12:38)
[2020-09-30] MEDS ORDERED: LIDOCAINE 2% MDV 20ML VIAL SC ONE (13:45)
[2020-09-30] MEDS ORDERED: LIDOCAINE 2% W/EPINEPHRINE 20ML VIAL **PRES FREE INJ ONE (14:15)
[2020-09-30] MEDS ORDERED: ANUS2.5C2 TOP (15:01)
[2020-09-30] MEDS ORDERED: MIRA3350 PO (15:01)
[2020-09-30 15:39] VITALS: BP 141/75
== END 2020-09-30 15:43 | disposition home or self-care (01) ==
LOC: M ED 12:01
DX: K64.5 Perianal venous thrombosis (principal); K64.8 Other hemorrhoids

== ENCOUNTER → 2020-11-11 | Outpatient (CLI) | payer OTHER ==
[~2020-11-11] MED LIST changes: +ANUS2.5C2 TOP; +IBUP1TAB7 PO; +MIRA3350 PO; +PHEN15CA; +TOPI100T9
--- NOTE | 2020-11-11 11:02 | REPPI ---
INDICATION: LOOSE STOOLS COMPARISON: None. TECHNIQUE: Supine views of the abdomen and pelvis. FINDINGS: Bowel gas pattern is nonspecific and without obstruction or perforation. No organomegaly. No abnormal calcifications. Skeletal structures intact. IMPRESSION: Normal abdominal radiograph. Nonspecific bowel gas pattern. <Electronically signed by Rolan Keane > 11/11/20 1054
== END ==
LOC: M PLALAB 10:20 → M PLAIMG 10:20
PROVIDERS: ATTEND Physician Assistant
DX: R19.5 Other fecal abnormalities (principal)
CPT/HCPCS: 74018; G0463

== ENCOUNTER → 2020-12-03 | Outpatient (REF) | payer OTHER | LOC: M SFHCPLAZ 13:27 | PROVIDERS: ATTEND Internal Medicine | DX: R19.7 Diarrhea, unspecified (principal) ==

== ENCOUNTER → 2021-02-10 | Outpatient (REF) | payer OTHER | LOC: M LAB REF 14:14 | PROVIDERS: ATTEND Internal Medicine Gastroenterology | DX: R19.7 Diarrhea, unspecified (principal) ==